=== PATIENT | male | born 1960 | race Caucasian/White ===

== ENCOUNTER 2016-05-12 11:07 | Inpatient (IN) | payer OTHER ==
[~2016-05-12 11:07] MED LIST: LIDOCAINE HCL 1%, 10 MG/ML (20ML VIAL) IJ ONE
[2016-05-12 11:14] VITALS: BMI 20.7
--- NOTE | 2016-05-12 12:08 | PDOC ---
History of Present Illness - General History Source: Patient, Old Records Exam Limitations: No Limitations - History of Present Illness Initial Comments: 05/12/16 12:33 The patient is a 56 year old male, with a significant past medical history of HTN and ESRD (on dialysis //Thu) s/p nephrectomy with a right upper extremity graft placement who presents to the emergency department sent by Dr. Tashi Thibodeaux for right AV graft repair and likely admission to the hospital. The patient received dialysis this past Thursday (2 days ago) without issue. The patient presents today because his graft is clogged. The patient denies fever, chills or any pain at this time. Allergies: None reported. Past Surgical History: Nephrectomy. Social History: Non smoker. Denies alcohol or drug use. Vascular Surgeon: Dr. Tashi Thibodeaux <Ivanna Da Silva - Last Filed: 05/12/16 12:34> - General History Source: Patient, Old Records Exam Limitations: No Limitations <Homar Somers - Last Filed: 05/12/16 16:11> - General Chief Complaint: Dialysis Shunt Problem Stated Complaint: admission, pre op PCP SENT, CLOT Time Seen by Provider: 05/12/16 11:44 Past History <Ivanna Da Silva - Last Filed: 05/12/16 12:34> - Past Medical History Anemia: No Asthma: No Cancer: No Cardiac Disorders: No CVA: No COPD: No CHF: No Dementia: No Diabetes: No Dialysis: Yes (,,THU, old lt arm fistula, current rt arm fistula) GI Disorders: No Disorders: No HTN: Yes (PT DENIES HTN) Hypercholesterolemia: No Liver Disease: No Seizures: No Thyroid Disease: No - Surgical History Abdominal Surgery: No Appendectomy: No Cardiac Surgery: No Cholecystectomy: No Lung Surgery: No Neurologic Surgery: No Orthopedic Surgery: No - Immunization History Immunization Up to Date: No - Psycho/Social/Smoking Cessation Hx Anxiety: No Suicidal Ideation: No Smoking History: Never smoked Have you smoked in the past 12 months: No Information on smoking cessation initiated: No Hx Alcohol Use: No Drug/Substance Use Hx: No Substance Use Type: None Hx Substance Use Treatment: No <Homar Somers - Last Filed: 05/12/16 16:11> - Past Medical History Allergies/Adverse Reactions: Allergies Allergy/AdvReac Type Severity Reaction Status Date / Time No Known Drug Allergies Allergy Verified 05/12/16 11:09 Home Medications: Ambulatory Orders Prednisone 10 mg PO DAILY 03/27/15 Sevelamer Carbonate [Renvela -] 800 mg PO TID 06/25/15 Review of Systems - Review of Systems Able to Perform ROS?: Yes Comments:: 05/12/16 12:31 GENERAL/CONSTITUTIONAL: No fever or chills. No weakness. HEAD, EYES, EARS, NOSE AND THROAT: No change in vision. No ear pain or discharge. No sore throat. CARDIOVASCULAR: No chest pain or shortness of breath. RESPIRATORY: No cough, wheezing, or hemoptysis. GASTROINTESTINAL: No nausea, vomiting, diarrhea or constipation. GENITOURINARY: No dysuria, frequency, or change in urination. MUSCULOSKELETAL: No joint or muscle swelling or pain. No neck or back pain. SKIN: No rash. NEUROLOGIC: No headache, vertigo, loss of consciousness, or change in strength/ sensation. ENDOCRINE: No increased thirst. No abnormal weight change. HEMATOLOGIC/LYMPHATIC: No anemia, easy bleeding, or history of blood clots. ALLERGIC/IMMUNOLOGIC: No hives or skin allergy. <Ivanna Da Silva - Last Filed: 05/12/16 12:34> *Physical Exam - Vital Signs Last Vital Signs Temp Pulse Resp BP Pulse Ox 97.7 F 72 18 137/78 100 05/12/16 11:09 05/12/16 11:09 05/12/16 11:09 05/12/16 11:09 05/12/16 11:09 - Physical Exam Comments: 05/12/16 12:11 GENERAL: Awake, alert, and fully oriented, in no acute distress. HEAD: No signs of trauma. EYES: PERRLA, EOMI, sclera anicteric, conjunctiva clear. ENT: Auricles normal inspection, hearing grossly normal, nares patent, oropharynx clear without exudates. Moist mucosa. NECK: Normal ROM, supple, no lymphadenopathy, JVD, or masses. LUNGS: Breath sounds equal, clear to auscultation bilaterally. No wheezes, and no crackles. HEART: Regular rate and rhythm, normal S1 and S2, no murmurs, rubs or gallops. ABDOMEN: Soft, nontender, normoactive bowel sounds. No guarding, no rebound. No masses. EXTREMITIES: Right AV graft, no palpable thrills. Normal range of motion, no edema. No clubbing or cyanosis. No cords, erythema, or tenderness. NEUROLOGICAL: Cranial nerves II through XII grossly intact. Normal speech, normal gait. SKIN: Warm, dry, normal turgor, no rashes or lesions noted. <Ivanna Da Silva - Last Filed: 05/12/16 12:34> - Vital Signs Last Vital Signs Temp Pulse Resp BP Pulse Ox 97.7 F 72 18 137/78 100 05/12/16 11:09 05/12/16 11:09 05/12/16 11:09 05/12/16 11:09 05/12/16 11:09 <Homar Somers - Last Filed: 05/12/16 16:11> Heart Score/ECG Review #1 ECG reviewed & interpreted by me at: 12:05 05/12/16 12:07 NSR 60, no std/thuy, normal axis, normal intervals T wave flat aVL, QTC 448 msec. MIldly peaked T waves V3-V5 <Homar Somers - Last Filed: 05/12/16 16:11> ED Treatment Course - LABORATORY CBC & Chemistry Diagram: 05/12/16 12:45 05/12/16 14:50 - RADIOLOGY Radiology Studies Ordered: Category Date Time Status CHEST PA & LAT [RAD] Stat Radiology 05/12/16 11:58 Ordered DUPLEX HEMODIALYSIS ACCESS [VASC] Stat Vascular 05/12/16 11:59 Ordered <Homar Somers - Last Filed: 05/12/16 16:11> Medical Decision Making - Medical Decision Making 05/12/16 12:08 A portion of this note was documented by scribe services under my direction. I have reviewed the details of the note, within reason, and agree with the documentation with the following case summary and management plan written by me. Patient treated in the ED. Nursing notes are reviewed and incorporated into the medical decision-making. Vital signs reviewed. Peripheral IV access obtained by the nurse, laboratory studies are drawn and sent, reviewed and interpreted by myself. Vital Signs Temp Pulse Resp BP Pulse Ox 97.7 F 72 18 137/78 100 05/12/16 11:09 05/12/16 11:09 05/12/16 11:09 05/12/16 11:09 05/12/16 11:09 56 year old male with past medical history of end-stage renal disease status post renal transplant in 2006 status post failed transplant with right upper extremity graft placement presents by Dr. Tashi Thibodeaux for right AV graft repair. Patient last went to dialysis 2 days ago on Thursday. He attempted to dialysis today but noted that was not working was clogged. Patient has no complete at this time. Patient's last a surgeon sent the patient the ER for admission and for repair. We'll send pre-op labs. We'll obtain an EKG to assess for the potassium. We'll do a duplex of the right AV graft. We'll admit the patient to the hospital for further management. 05/12/16 16:10 CBC, BMP 05/12/16 12:45 05/12/16 14:50 CMP Sodium 137 mmol/L (136-145) 05/12/16 14:50 Potassium 5.6 mmol/L (3.5-5.1) H D 05/12/16 14:50 Chloride 97 mmol/L (98-107) L 05/12/16 14:50 Carbon Dioxide 26 mmol/L (21-32) 05/12/16 14:50 Anion Gap 14 (8-16) 05/12/16 14:50 BUN 58 mg/dL (7-18) H D 05/12/16 14:50 Creatinine 11.7 mg/dL (0.7-1.3) H* D 05/12/16 14:50 Creat Clearance w eGFR 4.54 (>60) 05/12/16 14:50 Random Glucose 74 mg/dL (74-106) D 05/12/16 14:50 Calcium 9.1 mg/dL (8.5-10.1) 05/12/16 14:50 Phosphorus Cancelled 05/12/16 12:45 Magnesium 3.1 mg/dL (1.8-2.4) H 05/12/16 14:50 Total Bilirubin 0.6 mg/dL (0.2-1.0) 05/12/16 14:50 AST 17 U/L (15-37) 05/12/16 14:50 ALT 23 U/L (12-78) D 05/12/16 14:50 Alkaline Phosphatase 133 U/L (45-117) H D 05/12/16 14:50 Total Protein 7.4 g/dl (6.4-8.2) 05/12/16 14:50 Albumin 3.9 g/dl (3.4-5.0) 05/12/16 14:50 Labs reviewed. Potasium is 5.6 Kayexelate was ordered. Case discussed with Dr. Reed who accepts the patient to med/surg admission. Case discussed in detail with admitting physician including history, physical exam and ancillary studies. Admitting physician has assumed care for the patient, will follow all pending diagnostics and will complete the evaluation and treatment. <Homar Somers - Last Filed: 05/12/16 16:11> *DC/Admit/Observation/Transfer - Attestations Scribe Attestion: 05/12/16 12:10 Documentation prepared by Ivanna Da Silva, acting as associate medical director for Homar Somers MD. <Ivanna Da Silva - Last Filed: 05/12/16 12:34> - Discharge Dispostion Admit: Yes <Homar Somers - Last Filed: 05/12/16 16:11> Diagnosis at time of Disposition: AV graft malfunction Qualifiers: Encounter type: initial encounter Qualified Code(s): T82.510A - Breakdown ( mechanical) of surgically created arteriovenous fistula, initial encounter - Discharge Dispostion Condition at time of disposition: Stable
[2016-05-12 13:41] LABS: BASOPHIL 0.8 % (0-2.0); EOSINOPHIL 7.1 % (0-4.5); MCH 30.3 pg (25.7-33.7); MCHC 32.9 g/dl (32.0-35.9); MEAN CELL VOLUME 92.2 fl (80-96); MEAN PLT VOLUME 9.2 fl (7.5-11.1); NEUTROPHILS 64.5 % (42.8-82.8); PLATELET COUNT 205 K/MM3 (134-434); RDW 16.5 % (11.9-15.9); WHITE BLOOD COUNT 8.5 K/mm3 (4.0-10.0)
[2016-05-12 13:53] LABS: INR 0.96 (0.82-1.09); PROTHROMBIN TIME (PATIENT) 10.6 SEC (9.98-11.88)
[2016-05-12 13:55] LABS: ACTIVATED PTT 33.2 SECONDS (26.9-34.4)
[2016-05-12 15:53] LABS: ALBUMIN 3.9 g/dl (3.4-5.0); CALCIUM 9.1 mg/dL (8.5-10.1); MAGNESIUM 3.1 mg/dL (1.8-2.4)
[2016-05-12 16:00] LABS: BILIRUBIN,TOTAL 0.6 mg/dL (0.2-1.0); TOT PROT 7.4 g/dl (6.4-8.2)
[2016-05-12 16:07] LABS: CREATININE 11.7 mg/dL (0.7-1.3)
[2016-05-12] MEDS ORDERED: SODIUM POLYSTYRENE SULFONATE 15 GM/60 ML BOTTLE PO ONE ×2 (16:09→18:46)
[2016-05-12] MEDS ORDERED: SODIUM POLYSTYRENE SULFONATE 15 GM/60 ML BOTTLE ONE (16:12)
[2016-05-12] MEDS ORDERED: HEPARIN NA (PORCINE) 5,000 UNITS/ML 1ML VIAL ONE (16:19)
[2016-05-12] MEDS ORDERED: LIDOCAINE HCL 1%, 10 MG/ML (20ML VIAL) ONE (16:19)
[2016-05-12 16:37] LABS: PHOSPHOROUS 7.9 mg/dL (2.5-4.9)
[2016-05-12] MEDS ORDERED: MIDAZOLAM HCL 2 MG/2 ML SINGLE DOSE VIAL ONE ×3 (17:33→17:46)
[2016-05-12] MEDS ORDERED: ceFAZolin SODIUM 1 GM VIAL IVPB ONE (17:46)
[2016-05-12] MEDS ORDERED: LIDOCAINE HCL 1%, 10 MG/ML (20ML VIAL) IJ ONE (17:50)
[2016-05-12] MEDS ORDERED: SUCCINYLCHOLINE CHLORIDE 200 MG/10 ML VIAL ONE (18:34)
--- NOTE | 2016-05-12 18:36 | OP ---
Operative Note - Note: Operative Date: 05/12/16 Pre-Operative Diagnosis: clotted right avg Operation: venogram, suction thrombectomy, venoplasty right avg Post-Operative Diagnosis: Same as Pre-op Surgeon: Tashi Thibodeaux Anesthesia: Fractional Estimated Blood Loss (mls): 20 Operative Report Dictated: Yes
--- NOTE | 2016-05-12 18:46 | PN ---
Progress Note (short form) - Note Progress Note: Vascular Surgery Spoke to dr. Gallardo if pt needs HD tonight. He asked us to give Kayexlate tonight. He will ask Dr. Rajput to write HD orders in am. Tashi Thibodeaux DO
[2016-05-12] MEDS ORDERED: ONDANSETRON 4 MG/2 ML VIAL IVPUSH PRN (18:47)
--- NOTE | 2016-05-12 19:28 | HP ---
Admitting History and Physical - Primary Care Physician PCP: Ori Reed - Admission Chief Complaint: came to er for graft repair History of Present Illness: The patient is a 56 year old male, with a significant past medical history of HTN and ESRD (on dialysis //Thu) s/p nephrectomy with a right upper extremity graft placement who presents to the emergency department sent by Dr. Tashi Mayen for right AV graft repair . The patient received dialysis this past Thursday (2 days ago) without issue. The patient presents today because his graft is clogged. - Past Medical History Cardiovascular: Yes: HTN Renal/: Yes: Renal Failure, Hemodialysis - Past Surgical History Past Surgical History: Yes: AV Fistula/Graft - Smoking History Smoking history: Never smoked Have you smoked in the past 12 months: No - Alcohol/Substance Use Hx Alcohol Use: No Home Medications - Allergies Allergies/Adverse Reactions: Allergies Allergy/AdvReac Type Severity Reaction Status Date / Time No Known Drug Allergies Allergy Verified 05/12/16 11:09 - Home Medications Home Medications: Ambulatory Orders Prednisone 10 mg PO DAILY 03/27/15 Sevelamer Carbonate [Renvela -] 800 mg PO TID 06/25/15 Physical Examination Vital Signs: Vital Signs Temperature 97.5 F L 05/12/16 18:38 Pulse Rate 67 05/12/16 19:00 Respiratory Rate 12 05/12/16 19:00 Blood Pressure 142/65 05/12/16 19:00 O2 Sat by Pulse Oximetry (%) 100 05/12/16 19:00 Constitutional: Yes: No Distress HENT: Yes: Atraumatic Neck: Yes: Supple Cardiovascular: Yes: Regular Rate and Rhythm Respiratory: Yes: CTA Bilaterally Gastrointestinal: Yes: Normal Bowel Sounds Extremities: Yes: Other (R ARM IN DRESSING LEFT AXILLA CHRONIC WOUND) Neurological: Yes: Alert, Oriented Problem List - Problems (1) AV graft malfunction Assessment/Plan: s/p graft repair by dr mayen Code(s): T82.510A - BREAKDOWN OF SURGICALLY CREATED AV FISTULA, INIT Qualifiers: Encounter type: initial encounter Qualified Code(s): T82.510A - Breakdown (mechanical) of surgically created arteriovenous fistula, initial encounter (2) Anemia Assessment/Plan: due to chronic disease follow cbc Code(s): D64.9 - ANEMIA, UNSPECIFIED (3) ESRD (end stage renal disease) Assessment/Plan: on HD Code(s): N18.6 - END STAGE RENAL DISEASE (4) Hyperkalemia Code(s): E87.5 - HYPERKALEMIA Assessment/Plan Laboratory Tests 05/12/16 05/12/16 05/12/16 11:52 12:45 12:45 WBC 8.5 RBC 4.47 D Hgb 13.5 D Hct 41.2 D MCV 92.2 MCHC 32.9 RDW 16.5 H Plt Count 205 D MPV 9.2 Neutrophils % 64.5 Lymphocytes % 19.7 Monocytes % 7.9 Eosinophils % 7.1 H Basophils % 0.8 INR 0.96 PTT (Actin FS) 33.2 Sodium Potassium Chloride Carbon Dioxide Anion Gap BUN Creatinine Creat Clearance w eGFR Random Glucose Calcium Phosphorus Magnesium Total Bilirubin AST ALT Alkaline Phosphatase Total Protein Albumin Blood Type O POSITIVE Antibody Screen Negative 05/12/16 05/12/16 12:45 14:50 WBC RBC Hgb Hct MCV MCHC RDW Plt Count MPV Neutrophils % Lymphocytes % Monocytes % Eosinophils % Basophils % INR PTT (Actin FS) Sodium Cancelled 137 Potassium Cancelled 5.6 H D Chloride Cancelled 97 L Carbon Dioxide Cancelled 26 Anion Gap Cancelled 14 BUN Cancelled 58 H D Creatinine Cancelled 11.7 H* D Creat Clearance w eGFR Cancelled 4.54 Random Glucose Cancelled 74 D Calcium Cancelled 9.1 Phosphorus Cancelled 7.9 H Magnesium Cancelled 3.1 H Total Bilirubin Cancelled 0.6 AST Cancelled 17 ALT Cancelled 23 D Alkaline Phosphatase Cancelled 133 H D Total Protein Cancelled 7.4 Albumin Cancelled 3.9 Blood Type Antibody Screen Active Medications Generic Name Dose Route Start Last Admin Trade Name Freq PRN Reason Stop Dose Admin Fentanyl 25 mcg 05/12/16 18:47 Sublimaze Injection - IVPUSH 05/15/16 18:48 [id number] PRN PAIN Ondansetron HCl 4 mg 05/12/16 18:47 Zofran Injection IVPUSH 05/13/16 00:48 Q6H PRN NAUSEA AND/OR VOMITING A/P 1.PT WAS ADMITTED FOR GRAFT REPAIR BY DR MAYEN DOING WELL POST SURGERY WILL CALL ID FOR LEFT AXILLA CHRONIC WOUND
--- NOTE | 2016-05-12 19:42 | OP ---
DATE OF OPERATION: 05/12/2016 PRE-PROCEDURE DIAGNOSIS: Clotted right arteriovenous graft. POST-PROCEDURE DIAGNOSIS: Clotted right arteriovenous graft. PROCEDURE: Venogram, suction thrombectomy, venoplasty, right AV graft. SURGEON: Tashi Gomez DO ANESTHESIA: Fractional. BLOOD LOSS: 20 mL. The patient is a 56-year-old male who comes in with a clotted right AV graft. It was decided that he would need suction thrombectomy. The patient was consented for the procedure, understanding all risks, benefits, alternatives. He was then taken to the operating room. Once in the operating room, he was placed on the operating table in supine manner and the area of the right arm was prepped and draped in a sterile surgical manner. We then went ahead and injected 10 mL lidocaine 1% over the proximal AV graft above the anastomosis. We then used our micropuncture needle and punctured the AV graft. Micropuncture wire was inserted. Micropuncture sheath was inserted, and a traditional short 6-[place] sheath was inserted. We then shot our venogram via hand injection, showing that the graft was clotted and the stents at the axillary and at the venous anastomosis were clotted. We placed a 0.035 floppy guidewire the stent. We then used an AVX suction thrombectomy catheter and performed suction thrombectomy of the entire AV graft across the stent into the central veins. We then shot a venogram, showing that the flow through the stents was narrow and compromised. At this point we administered 3000 units of IV heparin. We then went ahead and used a 9 x 8 balloon and performed venoplasty of the central veins of the venous anastomosis and the entire AV graft. Completion venogram now showed that the graft was patent and the stents were patent. At this point we went in the distal AV graft and then 10 mL lidocaine 1% was injected there. We then took our micropuncture needle, punctured the distal AV graft and a micropuncture wire was inserted and micropuncture sheath was inserted, and a traditional short 6-[place] sheath was inserted. We then went ahead and shot our venogram, showing that the proximal AV graft above the anastomosis was clotted. We then went ahead and placed a 0.035 floppy guidewire through the arterial anastomosis and, using an AVX suction thrombectomy catheter, we performed suction thrombectomy of the entire proximal AV graft. We then used a 6 x 4 balloon for venoplasty of the arterial anastomosis and the proximal AV graft. We now had good flow in our AV graft. There was a good thrill. Completion venogram showed that the venous anastomosis was patent and the arterial anastomosis was patent and there was good flow all the way into the central veins. We then used a 4-0 Biosyn stitch and [id number]-by-[id number] stitch was placed around each sheath and the sheaths were pulled. The area was wet and dried and Dermabond was placed. The patient tolerated the procedure, no complication. Patient transferred back in stable condition. TASHI GOMEZ DO [id number]
--- NOTE | 2016-05-13 09:54 | PN ---
Progress Note (short form) - Note Progress Note: Anesthesia postop note 56 y/o M, s/p MAC for RUE venogram, venoplasty, thrombectomy POD#1, aaox3, vss, no complaints No anesthesia complications.
--- NOTE | 2016-05-13 11:06 | CONSULT ---
Consult Consult Specialty:: Nephrology Reason for Consultation:: ESRD - History of Present Illness Chief Complaint: came in for clotted graft History of Present Illness: Pt is sa 56 year old male with pmhx of ESRD and HTN who presented to the ER as his graft stopped working. His last HD was on Thursday. He went to the OR last night and had a thrombectomy. He is awake and alert. He denies shortness of breath or palpitations. He overall has no complaints. He denies fevers or chills. - History Source History Provided By: Patient - Past Medical History Cardio/Vascular: Yes: HTN Renal/: Yes: Renal Failure, Hemodialysis - Past Surgical History Past Surgical History: Yes: AV Fistula/Graft - Alcohol/Substance Use Hx Alcohol Use: No - Smoking History Smoking history: Never smoked Have you smoked in the past 12 months: No Home Medications - Allergies Allergies/Adverse Reactions: Allergies Allergy/AdvReac Type Severity Reaction Status Date / Time No Known Drug Allergies Allergy Verified 05/12/16 11:09 - Home Medications Home Medications: Ambulatory Orders Prednisone 10 mg PO DAILY 03/27/15 Sevelamer Carbonate [Renvela -] 800 mg PO TID 06/25/15 Family Disease History - Family Disease History Family History: Denies Review of Systems - Review of Systems Constitutional: reports: No Symptoms Eyes: reports: No Symptoms HENT: reports: No Symptoms Neck: reports: No Symptoms Cardiovascular: reports: No Symptoms Respiratory: reports: No Symptoms Gastrointestinal: reports: No Symptoms Genitourinary: reports: No Symptoms Musculoskeletal: reports: No Symptoms Integumentary: reports: No Symptoms Neurological: reports: No Symptoms Endocrine: reports: No Symptoms Hematology/Lymphatic: reports: No Symptoms Psychiatric: reports: No Symptoms Physical Exam Vital Signs: Vital Signs Temperature 97.7 F 05/13/16 08:00 Pulse Rate 69 05/13/16 08:00 Respiratory Rate 18 05/13/16 08:00 Blood Pressure 135/73 05/13/16 08:00 O2 Sat by Pulse Oximetry (%) 100 05/12/16 21:00 Constitutional: Yes: Anxious Eyes: Yes: Conjunctiva Clear HENT: Yes: Atraumatic Cardiovascular: Yes: S1, S2 Respiratory: Yes: CTA Bilaterally Gastrointestinal: Yes: Soft Extremities: Yes: Other (graft with thrill and bruit) Edema: No Neurological: Yes: Oriented Psychiatric: Yes: Agitated Labs: Laboratory Tests 05/12/16 05/12/16 12:45 14:50 Hgb 13.5 D Sodium 137 Potassium 5.6 H D Chloride 97 L Carbon Dioxide 26 Anion Gap 14 BUN 58 H D Creatinine 11.7 H* D Imaging - Results Chest X-ray: Report Reviewed Problem List - Problems (1) AV graft malfunction Code(s): T82.510A - BREAKDOWN OF SURGICALLY CREATED AV FISTULA, INIT Qualifiers: Encounter type: initial encounter Qualified Code(s): T82.510A - Breakdown (mechanical) of surgically created arteriovenous fistula, initial encounter (2) Anemia Code(s): D64.9 - ANEMIA, UNSPECIFIED (3) Complication, dialysis catheter clot or failure Code(s): [id number] - (4) ESRD (end stage renal disease) Code(s): N18.6 - END STAGE RENAL DISEASE (5) Hyperkalemia Code(s): E87.5 - HYPERKALEMIA Assessment/Plan Current Medications Generic Name Dose Route Start Last Admin Trade Name Nayan PRN Reason Stop Dose Admin Fentanyl 25 mcg 05/12/16 18:47 Sublimaze Injection - IVPUSH 05/15/16 18:48 [id number] PRN PAIN Heparin Sodium (Porcine) 2,000 unit 05/13/16 10:57 Heparin - IVPUSH 05/13/16 10:58 ONCE ONE Impression 1. ESRD 2. av graft malfunction 3. anemia on mircera as outpt 4. HTN 5. hypekalemia Plan - called HD unit for HD prescription: 3:15 opti 180 2 k bath, calcitriol 0.25 po on HD days, heparin 2000 bolus - will arrange for HD today as this is his dialysis day - resume home meds - mircera to be continues as outpt, hg is stable for now - will follow while in hospital, covering for Dr Gallardo, who pt follows with as outpt Dr Arroyo
[2016-05-13] MEDS ORDERED: HEPARIN NA (PORCINE) 5,000 UNITS/ML 1ML VIAL IVPUSH ONE (14:00)
--- NOTE | 2016-05-13 15:51 | CONSULT ---
Consult Consult Specialty:: infectious diseases Reason for Consultation:: post op dialysis cath blockage - History of Present Illness Chief Complaint: graft not working History of Present Illness: 56 year old male with pmhx of ESRD and HTN who presented to the ER as his graft stopped working. His last HD was on Thursday. He went to the OR last night and had a thrombectomy. no complaints patient awaiting to get dialysis he denies any fever or any other issues - History Source History Provided By: Patient Limitations to Obtaining History: No Limitations - Past Medical History Cardio/Vascular: Yes: HTN Renal/: Yes: Renal Failure, Hemodialysis - Past Surgical History Past Surgical History: Yes: AV Fistula/Graft - Alcohol/Substance Use Hx Alcohol Use: No - Smoking History Smoking history: Never smoked Have you smoked in the past 12 months: No Home Medications - Allergies Allergies/Adverse Reactions: Allergies Allergy/AdvReac Type Severity Reaction Status Date / Time No Known Drug Allergies Allergy Verified 05/12/16 11:09 - Home Medications Home Medications: Ambulatory Orders Prednisone 10 mg PO DAILY 03/27/15 Sevelamer Carbonate [Renvela -] 800 mg PO TID 06/25/15 Review of Systems - Review of Systems Constitutional: reports: No Symptoms Eyes: reports: No Symptoms HENT: reports: No Symptoms Neck: reports: No Symptoms Cardiovascular: reports: No Symptoms Respiratory: reports: No Symptoms Gastrointestinal: reports: No Symptoms Genitourinary: reports: No Symptoms Breasts: reports: No Symptoms Reported Musculoskeletal: reports: No Symptoms Integumentary: reports: No Symptoms Neurological: reports: No Symptoms Endocrine: reports: No Symptoms Hematology/Lymphatic: reports: No Symptoms Psychiatric: reports: No Symptoms Physical Exam Vital Signs: Vital Signs Temperature 98.6 F 05/13/16 14:19 Pulse Rate 74 05/13/16 14:19 Respiratory Rate 18 05/13/16 08:00 Blood Pressure 153/77 05/13/16 14:19 O2 Sat by Pulse Oximetry (%) 100 05/12/16 21:00 Constitutional: Yes: Well Nourished, No Distress, Anxious Eyes: Yes: Conjunctiva Clear HENT: Yes: Atraumatic Neck: Yes: Supple, Trachea Midline Cardiovascular: Yes: Regular Rate and Rhythm Respiratory: Yes: Regular, CTA Bilaterally Gastrointestinal: Yes: Normal Bowel Sounds, Soft Musculoskeletal: Yes: WNL Extremities: Yes: Other (fistula site looks good fistula working well) Integumentary: Yes: Other Wound/Incision: Yes: Clean/Dry Neurological: Yes: Alert, Oriented Psychiatric: Yes: Alert Imaging - Results Chest X-ray: Report Reviewed, Image Reviewed Ultrasound: Report Reviewed, Image Reviewed Assessment/Plan Problems (1) AV graft malfunction Assessment/Plan: s/p graft repair by dr mayen Code(s): T82.510A - BREAKDOWN OF SURGICALLY CREATED AV FISTULA, INIT Qualifiers: Encounter type: initial encounter Qualified Code(s): T82.510A - Breakdown (mechanical) of surgically created arteriovenous fistula, initial encounter (2) Anemia Assessment/Plan: due to chronic disease follow cbc Code(s): D64.9 - ANEMIA, UNSPECIFIED (3) ESRD (end stage renal disease) Assessment/Plan: on HD Code(s): N18.6 - END STAGE RENAL DISEASE (4) Hyperkalemia Code(s): E87.5 - HYPERKALEMIA patients post op site looks good plan will not start any anx patient for dialysis
--- NOTE | 2016-05-13 16:26 | EKG ---
Test Reason : Blood Pressure : / mmHG Vent. Rate : 060 BPM Atrial Rate : 060 BPM P-R Int : 164 ms QRS Dur : 094 ms QT Int : 448 ms P-R-T Axes : 050 032 061 degrees QTc Int : 448 ms NORMAL SINUS RHYTHM NORMAL ECG WHEN COMPARED WITH ECG OF 17-SEP-2015 13:40, NO SIGNIFICANT CHANGE WAS FOUND Confirmed by LEYLA MARIE MD ([id number]) on 05/13/2016 4:26:38 PM Referred By: Confirmed By:LEYLA MARIE MD
[2016-05-13 17:05] VITALS: TEMP 97.4
--- NOTE | 2016-05-13 19:20 | PN ---
Progress Note, Physician - Current Medication List Current Medications: Active Medications Fentanyl (Sublimaze Injection -) 25 mcg IVPUSH [id number] PRN PRN Reason: PAIN Stop: 05/15/16 18:48 - Objective Vital Signs: Vital Signs Temperature 97.4 F L 05/13/16 16:00 Pulse Rate 70 05/13/16 19:05 Respiratory Rate 18 05/13/16 19:05 Blood Pressure 132/58 05/13/16 19:05 O2 Sat by Pulse Oximetry (%) 97 05/13/16 09:00 Constitutional: Yes: No Distress HENT: Yes: Atraumatic Neck: Yes: Supple Cardiovascular: Yes: Regular Rate and Rhythm Respiratory: Yes: CTA Bilaterally Gastrointestinal: Yes: Normal Bowel Sounds Extremities: Yes: Other (R ARM IN DRESSING) Neurological: Yes: Alert, Oriented Labs: INR, PTT INR 0.96 (0.82-1.09) 05/12/16 12:45 Problem List - Problems (1) AV graft malfunction Code(s): T82.510A - BREAKDOWN OF SURGICALLY CREATED AV FISTULA, INIT Qualifiers: Encounter type: initial encounter Qualified Code(s): T82.510A - Breakdown (mechanical) of surgically created arteriovenous fistula, initial encounter (2) Anemia Code(s): D64.9 - ANEMIA, UNSPECIFIED (3) ESRD (end stage renal disease) Code(s): N18.6 - END STAGE RENAL DISEASE (4) Hyperkalemia Code(s): E87.5 - HYPERKALEMIA Assessment/Plan A/P 1.PT WAS ADMITTED FOR GRAFT REPAIR BY DR GOMEZ DOING WELL POST SURGERY WILL DC IN AM WOUND CX GRAM POSITIVE COCCI IN PAIRS
[2016-05-13 19:47] VITALS: BP 120/70; PULSE 64
[2016-05-15 06:06] LABS: HEP B SURFACE AB Reactive (.)
== END 2016-05-13 20:19 | disposition home or self-care (01) | DRG 252 ==
LOC: JER 11:07 → J6S 18:15 → JERBED 18:30 → JSAMEDAYSX 18:35 → J6S 20:02
PROVIDERS: ADMIT Internal Medicine; ATTEND Internal Medicine
PROC: 3E03317 Introduction of Other Thrombolytic into Peripheral Vein, Percutaneous Approach (ICD-10-PCS; 2016-05-12)
PROC: B51MYZA Fluoroscopy of Right Upper Extremity Veins using Other Contrast, Guidance (ICD-10-PCS; 2016-05-12)
PROC: 05CY3ZZ Extirpation of Matter from Upper Vein, Percutaneous Approach (ICD-10-PCS; principal; 2016-05-12 17:00)
PROC: 5A1D60Z (ICD-10-PCS; 2016-05-13)
DX: T82.510A Breakdown (mechanical) of surgically created arteriovenous fistula, initial encounter (principal); N18.6 End stage renal disease; I12.0 Hypertensive chronic kidney disease with stage 5 chronic kidney disease or end stage renal disease; Y83.9 Surgical procedure, unspecified as the cause of abnormal reaction of the patient, or of later complication, without mention of misadventure at the time of the procedure; Z99.2 Dependence on renal dialysis; E87.5 Hyperkalemia; D64.9 Anemia, unspecified
CPT/HCPCS: 36415; 71020-TC; 76000-TC; 80053; 83735; 84100; 85025; 85610; 85730; 86704; 86706; 86708; 86803; 86850; 86900; 86901; 87070; 87186; 87205; 87340; 93005; 93010; 93931; 93971; 94760; 99285-25; G0463-25; J1644

== ENCOUNTER 2016-06-04 09:42 | Day surgery (SDC) | payer OTHER ==
[2016-06-02 15:21] VITALS: BMI 20.7
[2016-06-04] MEDS ORDERED: HEPARIN NA (PORCINE) 5,000 UNITS/ML 1ML VIAL ONE ×2 (11:31→12:09)
[2016-06-04] MEDS ORDERED: LIDOCAINE HCL 1%, 10 MG/ML (20ML VIAL) ONE (11:31)
[2016-06-04] MEDS ORDERED: MIDAZOLAM HCL 2 MG/2 ML SINGLE DOSE VIAL ONE (11:33)
[2016-06-04] MEDS ORDERED: ceFAZolin SODIUM 1 GM VIAL ONE (12:23)
[2016-06-04] MEDS ORDERED: ceFAZolin SODIUM 1 GM VIAL IVPB ONE (12:26)
[2016-06-04] MEDS ORDERED: KETOROLAC TROMETHAMINE 30 MG/1 ML VIAL ONE (12:51)
[2016-06-04] MEDS ORDERED: IOHEXOL 300 MG/ML INFUS..BTL IV ONE (13:25)
[2016-06-04] MEDS ORDERED: LIDOCAINE HCL 1%, 10 MG/ML (20ML VIAL) IJ ONE (13:25)
[2016-06-04] MEDS ORDERED: ONDANSETRON 4 MG/2 ML VIAL IVPUSH PRN (13:37)
[2016-06-04] MEDS ORDERED: oxyCODONE HCL 5 MG TABLET PO PRN (13:37)
--- NOTE | 2016-06-04 13:39 | HP ---
Admitting History and Physical - Admission Chief Complaint: clotted right avg - Past Medical History Cardiovascular: Yes: HTN Renal/: Yes: Renal Failure, Hemodialysis - Past Surgical History Past Surgical History: Yes: AV Fistula/Graft - Smoking History Smoking history: Never smoked Have you smoked in the past 12 months: No - Alcohol/Substance Use Hx Alcohol Use: No Home Medications - Allergies Allergies/Adverse Reactions: Allergies Allergy/AdvReac Type Severity Reaction Status Date / Time No Known Drug Allergies Allergy Verified 05/12/16 11:09 - Home Medications Home Medications: Ambulatory Orders Sevelamer Carbonate [Renvela -] 800 mg PO TID 06/25/15 Physical Examination Vital Signs: Vital Signs Temperature 97.8 F 06/04/16 10:33 Pulse Rate 72 06/04/16 10:33 Respiratory Rate 18 06/04/16 10:33 Blood Pressure 106/63 06/04/16 10:33 O2 Sat by Pulse Oximetry (%) 97 06/04/16 10:25 Constitutional: Yes: Well Nourished Eyes: Yes: WNL HENT: Yes: WNL Neck: Yes: WNL Cardiovascular: Yes: WNL Respiratory: Yes: WNL Gastrointestinal: Yes: WNL Labs: CBC, BMP 06/04/16 10:00 Assessment/Plan Clotted right avg 1. for declotting today
[2016-06-04] MEDS ORDERED: SODIUM CHLORIDE 1,000 ML IV SCH (13:45)
[2016-06-04 14:57] VITALS: TEMP 97.6
[2016-06-04 15:13] VITALS: BP 139/71; PULSE 76
--- NOTE | 2016-06-05 13:40 | OP ---
DATE OF OPERATION: 06/04/2016 PREOPERATIVE DIAGNOSIS: Clotted right arteriorvenous graft. POSTOPERATIVE DIAGNOSIS: Clotted right arteriorvenous graft. PROCEDURE: Venogram, suction thrombectomy, drug-coated balloon venoplasty of right arteriorvenous graft. SURGEON: Tashi Gomez MD ANESTHESIA: Fractional. BLOOD LOSS: 10 mL. INDICATIONS: The patient is a 56-year-old male who has a right AV graft that is occluded. Three weeks ago, he had his right AV graft closed when he went to dialysis. From the dialysis unit, they sent him to an [facility] in the [facility] where they opened his graft and also placed a permacath in at the same time. Thereafter, he says that the graft closed, and now they are using his permacath for dialysis. It was felt that we would attempt to open his AV graft so that the permacath could be taken out. Patient came into ambulatory surgery. Patient was consented for the procedure understanding all risks, benefits, and alternatives, and then taken to the operating room. DESCRIPTION OF PROCEDURE: Once in the operating room, he was placed on the operating table in the supine manner, and the area of the right AV graft was prepped and draped in a sterile surgical manner. We went ahead and then injected 10 mL of lidocaine 1% at the proximal AV graft, and using a micropuncture needle, we punctured the AV graft. Micropuncture wire was inserted, and a traditional short 6-Lao sheath was inserted. We then shot a venogram showing that the graft was clotted and the patient had stents lined all the way into the central veins. At this point, we placed a 0.035-floppy guidewire across all the stenosis and through the clot and placed a wire into the central veins. We then used an AV suction thrombectomy catheter and performed suction thrombectomy of the entire AV graft. Once completed, in two passes, the graft was now opened. There was good back flow, and what we found on venogram, which was shot by hand injection, that there was significant stenosis in the stent. At this point, 3000 units of IV heparin was administered to the patient, and using an 8 x 8 balloon, we performed venoplasty of the entire stent and the AV graft. We then went ahead and shot a completion venogram, which showed that the patient had good flow and everything was patent into the central veins. We then went into the distal AV graft and punctured the AV graft with micropuncture needle and placed a short 6-Lao sheath. We then went ahead and used a 4-0 No. 4 Hortensia, and using the Hortensia catheter, we went to the proximal AV graft at the anastomosis and pulled the clot from the anastomosis. Once this was done, there was good inflow. We then shot a venogram showing that the proximal AV graft had significant stenosis. At this point, we used a 6 x 6 balloon and performed venoplasty of the proximal AV graft at the anastomosis. We then went back and looked at their stents and went ahead and used a 6 x 150 drug-coated Lutonix balloon and performed venoplasty of all the stents and left the balloon open for 2 minutes. Once that was concluded, the balloon was removed, and we shot a completion venogram showing that the graft was paent and there was good flow. There was good thrill and no bruit. At this point, using a 4-0 Biosyn stitch, we put figure-of-8 stitches around each of our sheaths, and the sheaths were pulled, and the sutures were tied down. There was no bleeding. Area was wet and dried, and Dermabond was placed. The patient tolerated the procedure with no complications. Patient transferred to PACU in stable condition. TASHI GOMEZ DO [id number]
== END 2016-06-04 15:13 | disposition home or self-care (01) ==
LOC: JASU-SURG 09:42
PROVIDERS: ATTEND Surgery Vascular Surgery
PROC: 057Y3ZZ Dilation of Upper Vein, Percutaneous Approach (ICD-10-PCS; principal; 2016-06-04 11:30)
DX: T82.858A Stenosis of other vascular prosthetic devices, implants and grafts, initial encounter (principal); I12.0 Hypertensive chronic kidney disease with stage 5 chronic kidney disease or end stage renal disease; N18.5 Chronic kidney disease, stage 5
CPT/HCPCS: 36415; 76000-TC; 84132; 94760; J1644

== ENCOUNTER 2016-07-23 07:26 | Day surgery (SDC) | payer OTHER ==
[2016-07-22 10:36] VITALS: BMI 20.7
[2016-07-23] MEDS ORDERED: ROPIVACAINE HCL 0.5% 30ML VIAL ONE (09:54)
[2016-07-23] MEDS ORDERED: MIDAZOLAM HCL 2 MG/2 ML SINGLE DOSE VIAL ONE ×3 (09:55→10:43)
[2016-07-23] MEDS ORDERED: LIDOCAINE HCL 1%, 10 MG/ML (20ML VIAL) ONE (10:34)
[2016-07-23] MEDS ORDERED: HEPARIN NA (PORCINE) 5,000 UNITS/ML 1ML VIAL ONE ×2 (10:34→10:38)
[2016-07-23] MEDS ORDERED: PROPOFOL 20 ML ONE ×3 (11:00→11:02)
[2016-07-23] MEDS ORDERED: ceFAZolin SODIUM 1 GM VIAL IVPB ONE (11:19)
[2016-07-23] MEDS ORDERED: POVIDONE-IODINE OINTMENT 10% - 28.4 GM TUBE ONE (11:54)
[2016-07-23] MEDS ORDERED: ONDANSETRON 4 MG/2 ML VIAL IVPUSH PRN (12:16)
--- NOTE | 2016-07-23 12:16 | OP ---
Operative Note - Note: Operative Date: 07/23/16 Pre-Operative Diagnosis: ESRD Operation: Exploration of right arm. Findings: Vein found to be closed. Could not pass feeding tube Post-Operative Diagnosis: Same as Pre-op Surgeon: Tashi Thibodeaux Anesthesia: Fractional Estimated Blood Loss (mls): 10 Operative Report Dictated: Yes
--- NOTE | 2016-07-23 12:18 | HP ---
Admitting History and Physical - Admission Chief Complaint: ESRD, - Past Medical History Cardiovascular: Yes: HTN Renal/: Yes: Renal Failure, Hemodialysis - Past Surgical History Past Surgical History: Yes: AV Fistula/Graft - Smoking History Smoking history: Never smoked Have you smoked in the past 12 months: No - Alcohol/Substance Use Hx Alcohol Use: No Home Medications - Allergies Allergies/Adverse Reactions: Allergies Allergy/AdvReac Type Severity Reaction Status Date / Time No Known Drug Allergies Allergy Verified 07/23/16 08:51 - Home Medications Home Medications: Ambulatory Orders Sevelamer Carbonate [Renvela -] 800 mg PO TID 06/25/15 Physical Examination Vital Signs: Vital Signs Temperature 98 F 07/23/16 08:38 Pulse Rate 68 07/23/16 08:38 Respiratory Rate 18 07/23/16 08:43 Blood Pressure 125/72 07/23/16 08:38 O2 Sat by Pulse Oximetry (%) 100 07/23/16 08:53 Constitutional: Yes: Well Nourished Eyes: Yes: WNL HENT: Yes: WNL Neck: Yes: WNL Cardiovascular: Yes: WNL Respiratory: Yes: WNL Gastrointestinal: Yes: WNL Labs: CBC, BMP 07/23/16 07:47 Assessment/Plan ESRD 1. for creation for avf today
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
[2016-07-24 05:30] VITALS: BP 137/79; PULSE 69; TEMP 97.3
--- NOTE | 2016-07-24 17:42 | OP ---
DATE OF OPERATION: 07/23/2016 PREOPERATIVE DIAGNOSIS: End-stage renal disease. POSTOPERATIVE DIAGNOSIS: End-stage renal disease. PROCEDURE: Exploration of right arm antecubital fossa. SURGEON: Tashi Gomez DO ANESTHESIA: With a block and MAC. TOTAL BLOOD LOSS: 20 mL. The patient is a 56-year-old male who has had multiple interventions for his end-stage renal disease. He has a PermCath in his right IJ. He had left AV graft that was placed in [place] and then removed due to infection. He had a right AV graft placed, which is now thrombosed and cannot be reopened. It was decided that we would try to explore his right antecubital fossa to see if the vein there is adequate to be used for an AV fistula creation. Vein mapping was performed preoperatively and a vein of about 2 mm was found about the antecubital fossa. Patient was consented for the procedure, understanding all risks, benefits, alternatives, understanding that once we open the antecubital fossa, if the vein is sclerotic or diseased, that we will not continue with the AV fistula. At this point, patient was brought in to the operating room and the area of the right arm was prepped and draped in a sterile surgical manner. Under ultrasound guidance, we were able to map out the vein and the brachial artery and those are marked on the skin and a diagonal incision was drawn in the antecubital fossa. We then went ahead and injected 10 mL lidocaine 1% in the area and we then opened the incision for about 7 cm using a 15 blade. Bovie electrocautery used to control hemostasis. We then got down to the cephalic vein. We then dissected the subcutaneous tissue and got down to the cephalic vein. The cephalic vein was then dissected anterior and posteriorly. We then went ahead and tied the distal cephalic vein off using 4-0 silk and ligated the vein. We then looked at the lumen. There was no bleeding coming back. We opened the lumen and there was a lot of clot in the vein and the vein was very sclerotic. On just examination, the vein was white and not blue. We tried to put a feeding tube into the vein but the feeding tube would not pass. At this point the vein was not open and could not be used for AV fistula creation, probably due to the fact that that vein has been used over and over again for blood draws and IV placements. At this point we tied off the vein using 3-0 silk. We irrigated the wound copiously. A 3-0 Vicryl was used and the subcutaneous tissue was approximated in an interrupted manner and the skin was closed with skin devi. The area was wet and dried. A 4 x 4, Tegaderm was placed. Patient tolerated procedure, no complication. Patient transferred back in stable condition. TASHI GOMEZ DO [id number]
== END 2016-07-24 05:30 | disposition home or self-care (01) ==
LOC: SUATTDRO 07:26 → JASU-SURG 07:26 → J6S 15:26 → JASU-SURG 07-24 05:30
PROVIDERS: ATTEND Internal Medicine
PROC: 03170ZD Bypass Right Brachial Artery to Upper Arm Vein, Open Approach (ICD-10-PCS; principal; 2016-07-23 09:30)
DX: I12.0 Hypertensive chronic kidney disease with stage 5 chronic kidney disease or end stage renal disease (principal); N18.6 End stage renal disease; I87.8 Other specified disorders of veins; Z53.8 Procedure and treatment not carried out for other reasons
CPT/HCPCS: 36415; 84132; 94760; J1644

== ENCOUNTER 2019-01-28 14:21 | Emergency (ER) | payer OTHER ==
[2019-01-28 15:13] VITALS: BMI 18.2
--- NOTE | 2019-01-28 15:35 | PDOC ---
Attending Attestation - Resident Resident Name: SuzannabrandiejeanetteAlfredo - ED Attending Attestation I have performed the following: I have examined & evaluated the patient, The case was reviewed & discussed with the resident, I agree w/resident's findings & plan, Exceptions are as noted - HPI HPI: 01/28/19 15:32 58 yo male h/o renal transplant, htn followed by nephrology at [facility] here with c /o persistant pain left flank llq, and decreased po intake, fatigue, dizziness. pt states he has difficulty eating due to severe constipation, denies f/c llq flank pain. does report cough, productive phlegm, no fever or chill. no n/v. does report weight loss. - Physicial Exam PE: 01/28/19 16:32 awake alert NAD cachectic , poor dentition, lungs clear bilat heart rrr no mrg abd soft mid ttp over tranplant scar, right flank pain ext wwp thin. 2+ dp/ pt - Medical Decision Making 01/28/19 16:36 58 yo male h/o renal transplant. htn here with c/o llq flank pain . fatigue, dizziness, differential renal failure, infeciton such as uti or pna, anemia, obstruction, hypothyroid. pt hypothermic 95 rectal, cxr negative for infection. 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 will require admission for pain, FTT, hypothermia ct a/p r/o obstruction divertic, or colitis. no iv contrast. ua pending. signed out to oncoming attennding pending. UA and CT a/p 01/28/19 16:47
--- NOTE | 2019-01-28 15:40 | PDOC ---
History of Present Illness - General Stated Complaint: Pain Time Seen by Provider: 01/28/19 15:08 History Source: Patient, Significant Other - History of Present Illness Initial Comments: 01/28/19 16:20 Scott Campbell is a 58 y/o man with hx multiple renal transplants (2006, 2016) presenting with several months of L sided abdominal pain, worsening over the last 3-4 days alongside constipation. He is accompanied by his girlfriend. He reports that the pain worsens with food. History limited by pain. He rates the pain 10/10, diffuse, not alleviated by over the counter medication. He reports diminished appetite for the last four days given concern that it would worsen his pain. He reports that for the last four days he has had to strain to pass stool, and reports that the stool has been liquid. He denies any palpitations, chest pain, vomiting, shortness of breath, weakness, vertigo, lightheadedness, fatigue. He denies any changes in medications for his transplant kidney, or any medical problems with the kidney thus far. Past History - Past Medical History Allergies/Adverse Reactions: Allergies Allergy/AdvReac Type Severity Reaction Status Date / Time No Known Drug Allergies Allergy Verified 07/23/16 08:51 Home Medications: Ambulatory Orders Sevelamer Carbonate [Renvela -] 800 mg PO TID 06/25/15 Aspirin [ASA -] 81 mg PO DAILY 01/28/19 Famotidine 0 mg PO DAILY 01/28/19 Mycophenolate Mofetil [Cellcept] 0 mg PO BID 01/28/19 Prednisone 0 mg PO DAILY 01/28/19 Tacrolimus Anhydrous [Prograf] 5 mg PO BID 01/28/19 Tamoxifen Citrate 0 mg PO DAILY 01/28/19 Anemia: No Asthma: No Cancer: No Cardiac Disorders: No CVA: No COPD: No CHF: No Dementia: No Diabetes: No Dialysis: Yes (,,[facility]U, old lt arm fistula, current rt arm fistula) GI Disorders: No Disorders: Yes (on dialysis //[facility] [facility]) HTN: Yes (PT DENIES HTN) Hypercholesterolemia: No Liver Disease: No Seizures: No Thyroid Disease: No - Surgical History Abdominal Surgery: No Appendectomy: No Cardiac Surgery: No Cholecystectomy: No Lung Surgery: No Neurologic Surgery: No Orthopedic Surgery: No - Immunization History Immunization Up to Date: No - Psycho Social/Smoking Cessation Hx Smoking History: Never smoked Have you smoked in the past 12 months: No Hx Alcohol Use: No Drug/Substance Use Hx: No Substance Use Type: None Hx Substance Use Treatment: No Review of Systems - Review of Systems Able to Perform ROS?: Yes Comments:: 01/28/19 21:08 ROS: GENERAL/CONSTITUTIONAL: No fever or chills. No weakness. HEAD, EYES, EARS, NOSE AND THROAT: No change in vision. No ear pain or discharge. No sore throat. CARDIOVASCULAR: No chest pain or shortness of breath RESPIRATORY: No cough, wheezing, or hemoptysis. GASTROINTESTINAL: Abdominal pain, diarrhea. No nausea, vomiting, or constipation. GENITOURINARY: No dysuria, frequency, or change in urination. MUSCULOSKELETAL: No joint or muscle swelling or pain. No neck or back pain. SKIN: No rash NEUROLOGIC: No headache, vertigo, loss of consciousness, or change in strength/ sensation. ENDOCRINE: No increased thirst. No abnormal weight change HEMATOLOGIC/LYMPHATIC: No anemia, easy bleeding, or history of blood clots. ALLERGIC/IMMUNOLOGIC: No hives or skin allergy. *Physical Exam - Vital Signs Last Vital Signs Temp Pulse Resp BP Pulse Ox 95.6 F L 73 20 109/51 L 100 01/28/19 15:24 01/28/19 14:30 01/28/19 14:30 01/28/19 14:30 01/28/19 14:30 - Physical Exam Comments: 01/28/19 21:11 PE: GENERAL: Awake, alert, and fully oriented. Grimacing, yelling out in pain with cough. HEAD: No signs of trauma, normocephalic, atraumatic EYES: PERRLA, EOMI, sclera anicteric, conjunctiva clear ENT: Auricles normal inspection, hearing grossly normal, nares patent, oropharynx clear without exudates. Moist mucosa NECK: Normal ROM, supple, no lymphadenopathy, JVD, or masses LUNGS: No distress, speaks full sentences, clear to auscultation bilaterally HEART: Regular rate and rhythm, normal S1 and S2, no murmurs, rubs or gallops, peripheral pulses normal and equal bilaterally. ABDOMEN: Tenderness to palpation in LUQ, LLQ. L ribcage tenderness. Soft, normoactive bowel sounds. No rebound. No masses EXTREMITIES : Normal inspection, Normal range of motion, no edema. No clubbing or cyanosis NEUROLOGICAL: Cranial nerves II through XII grossly intact. 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 Purdy, [facility]) Dispo: Likely transfer Discharge - Discharge Information Problems reviewed: Yes Clinical Impression/Diagnosis: Acute on chronic renal failure Qualifiers: Acute renal failure type: unspecified Chronic kidney disease stage: unspecified stage Qualified Code(s): N17.9 - Acute kidney failure, unspecified; N18.9 - Chronic kidney disease, unspecified Condition: Stable Disposition: TRANSFER ACUTE CARE/OTHER HOSP - Admission No - Follow up/Referral - Patient Discharge Instructions - Post Discharge Activity
[2019-01-28 15:59] LABS: BASO % 0.4 % (0-2.0); EOS % 0.1 % (0-4.5); HEMATOCRIT 32.7 % (35.4-49); HEMOGLOBIN 10.5 GM/dL (11.7-16.9); LYMPH % 4.5 % (8-40); MCH 26.4 pg (25.7-33.7); MCHC 32.2 g/dl (32.0-35.9); MEAN CELL VOLUME 81.8 fl (80-96); MEAN PLT VOLUME 10.8 fl (7.5-11.1); MONO % 3.7 % (3.8-10.2); NEUT % 91.3 % (42.8-82.8); PLATELET COUNT 190 K/MM3 (134-434); RBC 3.99 M/mm3 (4.00-5.60); WHITE BLOOD COUNT 3.7 K/mm3 (4.0-10.0)
[2019-01-28] MEDS ORDERED: SODIUM CHLORIDE 0.9% 1000 ML INFUS.BAG IV ONE (16:41)
[2019-01-28 17:07] LABS: ANISOCYTOSIS 1+; PLATELET ESTIMATE NORMAL
[2019-01-28] MEDS ORDERED: morphine CARPU-JECT 2 MG/1 ML DISP.SYRIN IVPUSH ONE ×2 (17:14→21:24)
[2019-01-28] MEDS ORDERED: MORPHINE SULFATE 2 MG/ML VIAL ONE ×2 (17:25→21:26)
[2019-01-28 17:31] LABS: CALCIUM 9.4 mg/dL (8.5-10.1)
[2019-01-28 17:32] LABS: ALBUMIN 3.3 g/dl (3.4-5.0); BILIRUBIN,TOTAL 0.4 mg/dL (0.2-1); TOT PROT 6.5 g/dl (6.4-8.2)
[2019-01-28 17:34] LABS: BLOOD UREA NITROGEN 128.4 mg/dL (7-18); POTASSIUM 6.5 mmol/L (3.5-5.1)
[2019-01-28] MEDS ORDERED: INSULIN REGULAR HUMAN 100 UNITS/ML *VIAL IVPUSH ONE ×2 (17:40→23:17)
[2019-01-28] MEDS ORDERED: CALCIUM GLUCONATE 10% - 1,000 MG/10 ML VIAL IVPB ONE ×2 (17:40→23:15)
[2019-01-28] MEDS ORDERED: DEXTROSE 50%-WATER - 25 GM/50 ML VIAL IVPUSH ONE ×3 (17:40→23:17)
[2019-01-28] MEDS ORDERED: ALBUTEROL SO4 2.5/IPRATROPIUM 0.5 INH SOL 3 ML VIAL.NEB. NEB ONE ×3 (17:40→23:24)
[2019-01-28] MEDS ORDERED: ALPRAZolam 1 MG TABLET PO PRN (17:46)
[2019-01-28] MEDS ORDERED: CALCIUM GLUCONATE 10% - 1,000 MG/10 ML VIAL ONE (17:52)
[2019-01-28] MEDS ORDERED: DEXTROSE 50%-WATER 25 GM/50 ML DISP.SYRIN ONE (17:52)
[2019-01-28 17:59] LABS: CREATININE 4.5 mg/dL (0.55-1.3)
[2019-01-28] MEDS ORDERED: ALPRAZolam 1 MG TABLET ONE (18:14)
[2019-01-28] MEDS ORDERED: KETAMINE HCL 200 MG/20 ML VIAL IVPB ONE (18:36)
[2019-01-28] MEDS ORDERED: SODIUM CHLORIDE 0.9% 500 ML INFUS.BAG IV ONE (18:41)
[2019-01-28 18:42] LABS: EPI CELLS 0.6 /HPF (0-5/HPF); HYALINE CASTS 5 /lpf (0-8); URINE APPEARANCE CLOUDY; URINE BACTERIA 0.3 /hpf (NEGATIVE); URINE BILIRUBIN NEGATIVE (NEGATIVE); URINE COLOR YELLOW; URINE GLUCOSE (UA) NEGATIVE (NEGATIVE); URINE KETONE TRACE (NEGATIVE); URINE LEUK ESTERASE NEGATIVE (NEGATIVE); URINE NITRITE NEGATIVE (NEGATIVE); URINE PROTEIN 1+ (NEGATIVE); URINE UROBILINOGEN 0.2 mg/dL (0.2-1.0); URINE WBC 1 /hpf (0-5)
[2019-01-28] MEDS ORDERED: KETAMINE HCL 200 MG/20 ML VIAL ONE (18:48)
[2019-01-28 18:59] LABS: URINE RBC 0-8 /hpf (0-4)
--- NOTE | 2019-01-28 19:09 | PDOC ---
*Physical Exam - Vital Signs Last Vital Signs Temp Pulse Resp BP Pulse Ox 96 F L 90 24 H 119/67 96 01/28/19 18:45 01/28/19 18:45 01/28/19 18:45 01/28/19 18:45 01/28/19 18:45 ED Treatment Course - LABORATORY CBC & Chemistry Diagram: 01/28/19 15:40 01/28/19 22:10 - ADDITIONAL ORDERS Additional order review: Laboratory Results 01/28/19 01/28/19 01/28/19 18:15 18:15 18:15 Sodium Potassium Chloride Carbon Dioxide Anion Gap BUN Creatinine Est GFR (CKD-EPI)AfAm Est GFR (CKD-EPI)NonAf Random Glucose Lactic Acid Calcium Total Bilirubin AST ALT Alkaline Phosphatase Troponin I Total Protein Albumin TSH Urine Color Yellow Urine Appearance Cloudy Urine pH 5.0 Ur Specific [place] 1.015 Urine Protein 1+ H Urine Glucose (UA) Negative Urine Ketones Trace H Urine Blood Negative Urine Nitrite Negative Urine Bilirubin Negative Urine Urobilinogen 0.2 Ur Leukocyte Esterase Negative Urine WBC (Auto) 1 Urine RBC (Auto) 0-8 Urine Casts (Auto) 5 U Epithel Cells (Auto) 0.6 Urine Bacteria (Auto) 0.3 Urine Osmolality 346 Ur Random Sodium 16 L 01/28/19 01/28/19 01/28/19 15:40 15:40 15:40 Sodium 134 L Potassium 6.5 H* Chloride 104 Carbon Dioxide 10 L Anion Gap 20 H BUN 128.4 H* Creatinine 4.5 H Est GFR (CKD-EPI)AfAm 15.64 Est GFR (CKD-EPI)NonAf 13.50 Random Glucose 96 Lactic Acid 0.5 Calcium 9.4 Total Bilirubin 0.4 AST 9 L ALT 8 L Alkaline Phosphatase 158 H Troponin I < 0.02 Total Protein 6.5 Albumin 3.3 L TSH 0.41 Urine Color Urine Appearance Urine pH Ur Specific [place] Urine Protein Urine Glucose (UA) Urine Ketones Urine Blood Urine Nitrite Urine Bilirubin Urine Urobilinogen Ur Leukocyte Esterase Urine WBC (Auto) Urine RBC (Auto) Urine Casts (Auto) U Epithel Cells (Auto) Urine Bacteria (Auto) Urine Osmolality Ur Random Sodium 01/28/19 15:40 RBC 3.99 L MCV 81.8 MCHC 32.2 RDW 16.0 H MPV 10.8 D Neutrophils % 91.3 H D Lymphocytes % 4.5 L D Monocytes % 3.7 L Eosinophils % 0.1 D Basophils % 0.4 - Medications Given in the ED: ED Medications Discontinued Medications Generic Name Dose Route Start Last Admin Trade Name Nayan PRN Reason Stop Dose Admin Albuterol/Ipratropium 4 amp 01/28/19 17:40 01/28/19 17:50 Duoneb - NEB 01/28/19 17:41 4 amp ONCE ONE Administration Calcium Gluconate 1,000 mg 01/28/19 17:40 01/28/19 17:50 Calcium Gluconate 10% - IVPB 01/28/19 17:41 1,000 mg ONCE ONE Administration Dextrose 50 gm 01/28/19 17:40 01/28/19 17:50 D50w (Vial) - IVPUSH 01/28/19 17:41 50 gm NOW ONE Administration Insulin Human Regular 10 units 01/28/19 17:40 01/28/19 17:50 Novolin R Vial *For Ivpush Or Iv Drip Only* IVPUSH 01/28/19 17:41 10 units ONCE ONE Administration Ketamine HCl 16 mg 01/28/19 18:36 01/28/19 18:50 Ketalar - IVPB 01/28/19 18:37 16 mg ONCE ONE Administration Morphine Sulfate 2 mg 01/28/19 17:14 01/28/19 17:37 Morphine Injection - IVPUSH 01/28/19 17:15 2 mg ONCE ONE Administration Sodium Chloride 1,000 ml 01/28/19 16:41 01/28/19 16:50 Normal Saline - IV 01/28/19 16:42 1,000 ml ONCE ONE Administration Sodium Chloride 1,000 ml 01/28/19 18:41 01/28/19 18:50 Normal Saline - IV 01/28/19 18:42 1,000 ml ONCE ONE Administration Medical Decision Making - Medical Decision Making 01/28/19 19:05 Vital Signs Temp Pulse Resp BP Pulse Ox 96 F L 90 24 H 119/67 96 01/28/19 18:45 01/28/19 18:45 01/28/19 18:45 01/28/19 18:45 01/28/19 18:45 pt signed out from Dr Webb pending workup labs notable for mild leukopenia, Cr 4.4 with very elevated BUN likely very dry/dehydration given hydration 2L hydration, able to urinate to allow perfusion. Hyper K noted with peaked T waves diffusely. medically treated with albuterol 10mg x nebs, dextrose, insulin and calcium gluconate no lasix no kayexalate given gigi kirby for mild hypothermic no fever no systemic findings is immunosuppressed, CT a/p with PO contrast to eval for intra abdominal infection/pathology. anticipate transfer to [facility] where transplant and nephrologists are available. CT no acute pathology, no acute pathology - adrenal nodule. 01/28/19 23:18 spoke with transplant team/nephro, accepted by Dr Purdy ED to ED transfer, communicated information with ED physician, Dr Guerra. repeat treatment course with same as above, albuterol calcium, dextrose and insulin. EKG improved, no QRS widening, normal sinus rhythm, normal intervals. no ST T wave derangements Discharge - Discharge Information Problems reviewed: Yes Clinical Impression/Diagnosis: Hyperkalemia Acute on chronic renal failure Qualifiers: Acute renal failure type: unspecified Chronic kidney disease stage: unspecified stage Qualified Code(s): N17.9 - Acute kidney failure, unspecified Condition: Stable Disposition: TRANSFER ACUTE CARE/OTHER HOSP - Follow up/Referral - Patient Discharge Instructions - Post Discharge Activity
[2019-01-28] MEDS ORDERED: ACETAMINOPHEN INJECTION 100 ML IVPB ONE (20:49)
[2019-01-28] MEDS ORDERED: ACETAMINOPHEN 1000 MG/100 ML VIAL (NON FORMULARY) IVPB ONE (20:49)
[2019-01-28 22:34] LABS: ALBUMIN 2.5 g/dl (3.4-5.0); BILIRUBIN,TOTAL 0.3 mg/dL (0.2-1); CALCIUM 7.7 mg/dL (8.5-10.1); CREATININE 3.1 mg/dL (0.55-1.3); POTASSIUM 5.6 mmol/L (3.5-5.1); TOT PROT 4.7 g/dl (6.4-8.2)
[2019-01-28 22:35] LABS: BLOOD UREA NITROGEN 104.2 mg/dL (7-18)
[2019-01-28 23:12] VITALS: BP 127/77; PULSE 72; TEMP 95.8
[2019-01-28] MEDS ORDERED: INSULIN REGULAR HUMAN 100 UNITS/ML *VIAL ONE (23:24)
[2019-01-28] MEDS ORDERED: DEXTROSE 50%-WATER - 25 GM/50 ML VIAL ONE (23:24)
[2019-01-28] MEDS ORDERED: CALCIUM CHLORIDE 1 GM/10 ML *DISP.SYRIN ONE (23:25)
[2019-01-28] MEDS: ALBUTEROL SO4 2.5/IPRATROPIUM 0.5 INH SOL 3 ML VIAL.NEB. NEB SCH (23:52)
[2019-01-29] MEDS: ALBUTEROL SO4 2.5/IPRATROPIUM 0.5 INH SOL 3 ML VIAL.NEB. NEB SCH ×2 (00:07→00:16)
--- NOTE | 2019-01-29 09:51 | EKG ---
Test Reason : Blood Pressure : / mmHG Vent. Rate : 136 BPM Atrial Rate : 083 BPM P-R Int : 000 ms QRS Dur : 098 ms QT Int : 266 ms P-R-T Axes : 000 061 081 degrees QTc Int : 400 ms NORMAL SINUS RHYTHM PEAKED T WAVES: CLINICAL CORRELATION REQUIRED ABNORMAL ECG Confirmed by MERA RIVERA MD ([id number]) on 01/29/2019 9:50:49 AM Referred By: Confirmed By:MERA RIVERA MD
--- NOTE | 2019-01-29 09:57 | EKG ---
Test Reason : Blood Pressure : / mmHG Vent. Rate : 148 BPM Atrial Rate : 148 BPM P-R Int : 176 ms QRS Dur : 094 ms QT Int : 260 ms P-R-T Axes : 079 066 080 degrees QTc Int : 408 ms SINUS TACHYCARDIA PEAKED T WAVES: CLINICAL CORRELATION REQUIRED Confirmed by MERA RIVERA MD ([id number]) on 01/29/2019 9:57:11 AM Referred By: Confirmed By:MERA RIVERA MD
== END 2019-01-29 00:26 | disposition short-term general hospital (02) ==
LOC: JER 14:21
PROC: 3E0F7GC Introduction of Other Therapeutic Substance into Respiratory Tract, Via Natural or Artificial Opening (ICD-10-PCS; principal; 2019-01-28)
PROC: 3E0F7GC Introduction of Other Therapeutic Substance into Respiratory Tract, Via Natural or Artificial Opening (ICD-10-PCS; 2019-01-28)
PROC: 3E033GC Introduction of Other Therapeutic Substance into Peripheral Vein, Percutaneous Approach (ICD-10-PCS; 2019-01-28)
PROC: 3E033VG Introduction of Insulin into Peripheral Vein, Percutaneous Approach (ICD-10-PCS; 2019-01-28)
PROC: 3E033NZ Introduction of Analgesics, Hypnotics, Sedatives into Peripheral Vein, Percutaneous Approach (ICD-10-PCS; 2019-01-28)
PROC: 3E033FZ Introduction of Intracirculatory Anesthetic into Peripheral Vein, Percutaneous Approach (ICD-10-PCS; 2019-01-28)
PROC: 3E033NZ Introduction of Analgesics, Hypnotics, Sedatives into Peripheral Vein, Percutaneous Approach (ICD-10-PCS; 2019-01-28)
PROC: 3E0337Z Introduction of Electrolytic and Water Balance Substance into Peripheral Vein, Percutaneous Approach (ICD-10-PCS; 2019-01-28)
DX: N17.9 Acute kidney failure, unspecified (principal); I12.0 Hypertensive chronic kidney disease with stage 5 chronic kidney disease or end stage renal disease; N18.6 End stage renal disease; N17.8 Other acute kidney failure; Z99.2 Dependence on renal dialysis; T68.XXXA Hypothermia, initial encounter; R62.7 Adult failure to thrive; Z68.1 Body mass index [BMI] 19.9 or less, adult; Z94.0 Kidney transplant status
CPT/HCPCS: 36415; 71045-TC-FY; 74176-TC; 80053; 81003; 82565; 83605; 83935; 84300; 84443; 84484; 85025; 87040; 87086; 93005; 93010; 94640; 96374; 96375; 99285-25; J0131; J7030